=== PATIENT | female | born 1985 | race Caucasian/White ===

== ENCOUNTER 2021-07-02 12:55 | Emergency (ER) | payer MEDICAID ==
[~2021-07-02] VITALS: Ht 162.6 cm; Wt 63.5 kg
--- NOTE | 2021-07-02 13:05 | NUR ---
Pt arrived to ER with her mother and states she had a positive PCR test for COVID-19 two days ago. Pt anxious and not following instrustions and COVID precautions. Asked pt multiple times to wear mask. spoke with the pt and her mother outside ER upon arrival. No s/s of distress noted. Pt states she saw her pmd for same and was prescribed an Albuterol hand held inhaler.
[2021-07-02 13:50] LABS: HEMATOCRIT 39.3 % (31.2-41.9); MEAN CORPUSCULAR HEMOGLOBIN 31.9 uug (24.7-32.8); MEAN CORPUSCULAR VOLUME 95.3 fL (75.5-95.3); PLATELET COUNT (AUTO) 237 K/uL (179-408)
[2021-07-02 14:06] LABS: CREATININE 0.7 mg/dL (0.6-1.3); POTASSIUM 3.4 mmol/L (3.5-5.1)
[2021-07-02 14:34] LABS: *URINE HCG, QUAL NEG (NEGATIVE)
[2021-07-02] MEDS ORDERED: ALBU2.5V13 NEB (14:34)
--- NOTE | 2021-07-02 14:44 | NUR ---
Patient discharged to home in stable condition. Written and verbal after care instructions given. Patient verbalizes understanding of instructions. Stressed follow up or return to ER for worsening s/s.
== END 2021-07-02 14:45 | disposition home or self-care (01) ==
LOC: ER 12:55
DX: F41.9 Anxiety disorder, unspecified (principal); R06.02 Shortness of breath; E03.9 Hypothyroidism, unspecified; J45.909 Unspecified asthma, uncomplicated; E11.9 Type 2 diabetes mellitus without complications; E87.6 Hypokalemia; U07.1 COVID-19
CPT/HCPCS: 36415; 70030-TC; 71045; 84703; 85025; 93005; A4663